=== PATIENT | female | born 1985 | race Hispanic/Latino ===

== ENCOUNTER 2022-09-13 05:30 | Inpatient (IN) | payer BC ==
[2022-09-13 07:15] VITALS: BMI 33.3
[2022-09-13] MEDS ORDERED: Ibuprofen 800 MG TAB PO PRN (07:15)
[2022-09-13] MEDS ORDERED: fentaNYL 50 mcg/mL 1 mL Vial SLOW IVP PRN (07:15)
[2022-09-13] MEDS ORDERED: Promethazine HCl 25 MG/ML VIAL IM PRN ×2 (07:15→10:04)
[2022-09-13] MEDS ORDERED: Ondansetron PF 4 MG/2 ML Vial IVP PRN ×3 (07:15→21:23)
[2022-09-13] MEDS ORDERED: HYDROcodone/Acetaminophen 5/325 mg Tablet PO PRN ×4 (07:15→21:23)
[2022-09-13] MEDS ORDERED: Penicillin G Potassium 5 MILL.UNITS in Sodium Chloride 0.9% 100 ML IVPB SCH (07:15)
[2022-09-13] MEDS ORDERED: Lidocaine 1% (PF) 30 ML VIAL SC PRN (07:15)
[2022-09-13] MEDS ORDERED: NS w/ Oxytocin 30 units 500 ML IV SCH ×4 (07:15→21:23)
[2022-09-13] MEDS ORDERED: hydrALAZINE 20 MG/ML VIAL SLOW IVP PRN ×2 (07:15→21:23)
[2022-09-13] MEDS: Lactated Ringer's 1,000 ML IV SCH ×2 (07:20→08:56)
[2022-09-13 08:02] LABS: Hemoglobin 10.8 g/dL (12.0-15.5); Mean Corpuscular Hemoglobin 30.3 pg (27.0-33.0); Mean Corpuscular Volume 89.1 fl (81.6-98.3); Mean Platelet Volume 9.3 fl (7.4-10.4); Platelet Count 338 10x3/uL (150-450); RBC Distribution Width 14.6 % (11.5-14.5); Red Blood Cell (RBC) Count 3.57 10x6/uL (3.90-5.03); White Blood Cell (WBC) Count 8.8 10x3/uL (3.5-10.5)
[2022-09-13] MEDS ORDERED: fentaNYL/Ropivacaine Epidural 100 ML ONE (08:09)
[2022-09-13 08:40] LABS: Syphilis Antibody Nonreactive (Nonreactive); Syphilis Antibody Index 0.05 S/CO (<1.00 Non-Reactive)
[2022-09-13] MEDS ORDERED: diphenhydrAMINE 50 MG/ML VIAL IVP PRN (10:04)
[2022-09-13] MEDS ORDERED: ePHEDrine Sulfate 50 MG/10 ML VIAL SLOW IVP PRN (10:04)
[2022-09-13] MEDS ORDERED: Lactated Ringer's 500 ML IV PRN (10:04)
[2022-09-13] MEDS ORDERED: Moisturizing Cream (Eucerin) 113 GM JAR TOP PRN (10:04)
[2022-09-13] MEDS ORDERED: Naloxone HCl 0.4 mg/ml Vial IVP PRN ×2 (10:04)
[2022-09-13] MEDS ORDERED: Acetaminophen 325 MG TAB PO PRN (10:04)
[2022-09-13] MEDS ORDERED: Communication Order-Pharmacy FS SCH (10:15)
[2022-09-13] MEDS ORDERED: fentaNYL 2 mcg/Ropivacaine 0.2% Epidural 100 ML CADD EPIDURAL SCH (10:15)
[2022-09-13 10:46] LABS: HBSAg Index 0.13 S/CO (0-0.99); Hep B Surf Ag - L&D Non-Reactive S/CO (NonReactive)
[2022-09-13] MEDS: Penicillin G 2.5 MILL.units 2.5 MILL.UNITS in Premix Bag 1 BAG IVPB SCH ×3 (11:07→21:23)
[2022-09-13] MEDS ORDERED: Bupivacaine 0.25% HCL 30 ML VIAL ONE (13:00)
[2022-09-13] MEDS ORDERED: Boostrix 0.5 ML (Tdap) VIAL (>/=7 yrs of age) IM ONE (21:23)
[2022-09-13] MEDS ORDERED: Benzocaine-Menthol 82.5 ML CAN TOP PRN (21:23)
[2022-09-13] MEDS ORDERED: Preparation H Ointment 28 GM TUBE PR PRN (21:23)
[2022-09-13] MEDS ORDERED: diphenhydrAMINE 25 MG CAP PO PRN (21:23)
[2022-09-13] MEDS ORDERED: Bisacodyl 10 MG SUPP PR PRN (21:23)
[2022-09-13] MEDS ORDERED: Milk Of Magnesia 30 ML UDCUP PO PRN (21:23)
[2022-09-13] MEDS ORDERED: Docusate 100 MG CAP PO SCH (21:30)
[2022-09-13] MEDS ORDERED: Ibuprofen 800 MG TAB PO SCH (22:00)
[2022-09-14] MEDS: Ibuprofen 800 MG TAB PO SCH ×3 (03:32→19:47)
[2022-09-14] MEDS: Ferrous Sulfate 325 MG TAB PO SCH (09:52)
[2022-09-14] MEDS: Docusate 100 MG CAP PO SCH ×2 (09:54→21:20)
[2022-09-15] MEDS: Ibuprofen 800 MG TAB PO SCH (04:48)
[2022-09-15 07:53] VITALS: BP 93/51; TEMP 97.5
[2022-09-15] MEDS: Docusate 100 MG CAP PO SCH (08:40)
[2022-09-15] MEDS: Ferrous Sulfate 325 MG TAB PO SCH (08:40)
== END 2022-09-15 11:20 | disposition home or self-care (01) | DRG 807 ==
LOC: CSHLD 06:19 → CSHPP 21:32
PROVIDERS: ADMIT Obstetrics & Gynecology; ATTEND Obstetrics & Gynecology
PROC: 10E0XZZ Delivery of Products of Conception, External Approach (ICD-10-PCS; principal; 2022-09-13)
DX: O30.043 Twin pregnancy, dichorionic/diamniotic, third trimester (principal); Z37.2 Twins, both liveborn; Z3A.38 38 weeks gestation of pregnancy; O32.1XX0 Maternal care for breech presentation, not applicable or unspecified
CPT/HCPCS: 51702; 85027; 86780; 86850; 86900; 86901; 87340; J2540; J2590; J3490; J7120; S0020